=== PATIENT | female | born 1980 | race American Indian/Alaskan Native ===

== ENCOUNTER 2020-04-21 00:38 | Emergency (ER) | payer OTHER ==
[2020-04-21 01:33] VITALS: BP 115/65; PULSE 73; TEMP 98.8; BMI 26.9
--- NOTE | 2020-04-21 02:25 | PDOC ---
History of Present Illness - General Chief Complaint: Cold Symptoms Stated Complaint: FEVER Time Seen by Provider: 04/21/20 02:24 History Source: Patient Exam Limitations: No Limitations - History of Present Illness Initial Comments: 04/21/20 02:36 40 yo F with hx of Hepatitis B (2006) presents to the emergency department with fever. Patient states it has been ongoing since yesterday. Per the patient, she states that she had a 100.4 fever yesterday and took motrin. Today, she had a 100.6 F temperature and took motrin at approximately 10:00 pm. The patient denies the following: nausea, vomiting, lightheadedness, cough, SOB, chest pain, abdominal pain, dysuria, hematuria, diarrhea, dysuria, hematuria, increased urinary frequency, ears/nose/throat pain, rhinorrhea, and rash. Endorses having generalized body aches. Allergies: NKDA Past History - Medical History Allergies/Adverse Reactions: Allergies Allergy/AdvReac Type Severity Reaction Status Date / Time No Known Allergies Allergy Verified 04/21/20 01:34 Home Medications: Ambulatory Orders No Home Medications 0 dose .ROUTE UTDICT 09/04/13 Acetaminophen [Tylenol .Regular Strength -] 650 mg PO Q6H 06/16/14 Fexofenadine/Pseudoephedrine [Mireille-D 12 Hour Tablet] 1 each PO DAILY #10 tab.er.12h 06/16/14 COPD: No - Reproductive History Is Patient Now?: No - Psycho-Social/Smoking History Smoking History: Never smoked Have you smoked in the past 12 months: No - Substance Abuse Hx (Audit-C & DAST Scrn) How often the patient has a drink containing alcohol: Never Score: In Men: 4 or > Positive; In Women: 3 or > Positive: 0 Screen Result (Pos requires Nsg. Audit-10AR): Negative In the last yr the pt used illegal drug/Rx for NonMed reason: No Score: Yes response is considered Positive: 0 Screen Result (Positive result requires Nsg. DAST-10): Negative Review of Systems - Review of Systems Able to Perform ROS?: Yes Is the patient limited Divehi proficient: No Constitutional: Yes: Fever. No: Chills, Diaphoresis, Weakness HEENTM: No: Eye Pain, Ear Pain, Nose Pain, Throat Pain Respiratory: No: Cough, Shortness of Breath, Hemoptysis Cardiac (ROS): No: Chest Pain, Lightheadedness, Syncope ABD/GI: No: Constipated, Diarrhea, Nausea, Poor Appetite, Poor Fluid Intake, Rectal Bleeding, Vomiting, Abdominal cramping, Tarry Stools : No: Burning, Dysuria, Hematuria Musculoskeletal: No: Back Pain, Joint Pain, Neck Pain Integumentary: No: Bruising, Rash Neurological: No: Headache Psychiatric: No: Change in Appetite Endocrine: No: Unexplained Weight Loss Hematologic/Lymphatic: No: Anemia *Physical Exam - Vital Signs Last Vital Signs Temp Pulse Resp BP Pulse Ox 98.8 F 73 18 115/65 100 04/21/20 01:04/21/20 01:04/21/20 01:04/21/20 01:04/21/20 01:31 - Physical Exam General Appearance: Yes: Nourished, Appropriately Dressed. No: Apparent Distress, Intoxicated HEENT: positive: EOMI, BRITTANY, Normal ENT Inspection, Normal Voice, Symmetrical, TMs Normal, Pharynx Normal, Hearing Grossly Normal. negative: Pale Conjunctivae, Scleral Icterus (R), Scleral Icterus (L), Muffled/Hoarse voice, Pharyngeal Erythema, Tonsillar Exudate, Tonsillar Erythema, Nasal Congestion, Rhinorrhea, Sinus Tenderness, Excessive drooling Neck: positive: Trachea midline, Supple. negative: Tender, Lymphadenopathy (R), Lymphadenopathy (L), Tender lateral, Tender midline Respiratory/Chest: positive: Lungs Clear, Normal Breath Sounds. negative: Chest Tender, Respiratory Distress, Accessory Muscle Use, Rhonchi, Stridor, Wheezing Cardiovascular: positive: Regular Rhythm, Regular Rate, S1, S2. negative: Systolic Murmur Gastrointestinal/Abdominal: positive: Normal Bowel Sounds, Flat, Soft. negative: Tender, Distended, Guarding, Rebound Lymphatic: negative: Adenopathy Musculoskeletal: positive: Normal Inspection. negative: CVA Tenderness, Vertebral Tenderness Extremity: positive: Normal Capillary Refill, Normal Inspection, Normal Range of Motion. negative: Tender, Swelling, Calf Tenderness Integumentary: positive: Normal Color, Dry, Warm. negative: Swelling, Ecchymosis Neurologic: positive: Fully Oriented, Alert, Normal Mood/Affect, Normal Response Medical Decision Making - Medical Decision Making 40 yo F with hx of Hepatitis B (2006) presents to the emergency department with fever. Patient states it has been ongoing since yesterday. Per the patient, she states that she had a 100.4 fever yesterday and took motrin. Initial vitals: Initial Vital Signs Temp Pulse Resp BP Pulse Ox 98.8 F 73 18 115/65 100 04/21/20 01:31 04/21/20 01:31 04/21/20 01:31 04/21/20 01:31 04/21/20 01:31 Work up: patient presents to the emergency department with subjective fever. the patient had a normal temperature upon arrival and normal vital signs. patient was examined and no focal findings were appreciated. The patient state there is no sick contacts in her vicinity and denies recent travels and denies exposure to suspected or confirmed COVID. Patient was given strict return precautions and was stable for discharge. Discharge - Discharge Information Problems reviewed: Yes Clinical Impression/Diagnosis: Body aches Disposition: HOME - Admission No - Follow up/Referral Referrals: Chandrika Houston MD [Primary Care Provider] - - Patient Discharge Instructions Patient Printed Discharge Instructions: DI for Viral Upper Respiratory Infection -- Adult, [facility]-Coronavirus Instructions, [facility] COVID-19 Isolation Protocol Additional Instructions: You were seen in the emergency department for your fevers. It is possible that you have a viral infection, possibly COVID-19. Please quarantine yourself from others to protect others from infection. Please return to the emergency department if you have worsening symptoms or new concerning symptoms. Thank you. Please follow up with your primary medical doctor within 1 week after discharge for follow up care and management. - Post Discharge Activity Work/Back to School Note: Back to Work
--- NOTE | 2020-04-21 03:01 | PDOC ---
Attending Attestation - Resident Resident Name: Minesh Judge - ED Attending Attestation I have performed the following: I have examined & evaluated the patient, The case was reviewed & discussed with the resident, I agree w/resident's findings & plan, Exceptions are as noted - HPI HPI: 40 yo F history HBV presents with fever x1 day, measured at home. No other associated symptoms. No known sick contacts, however, there is a current COVID- 19 pandemic. - Physicial Exam PE: GENERAL: Awake, alert, and fully oriented, in no acute distress. Well-appearing. HEAD: No signs of trauma EYES: PERRLA, EOMI, sclera anicteric, conjunctiva clear ENT: Auricles normal inspection, hearing grossly normal, nares patent, oropharynx clear without exudates. Moist mucosa NECK: Normal ROM, supple, no lymphadenopathy, JVD, or masses LUNGS: Breath sounds equal, clear to auscultation bilaterally. No wheezes, and no crackles HEART: Regular rate and rhythm, normal S1 and S2, no murmurs, rubs or gallops ABDOMEN: Soft, nontender, normoactive bowel sounds. No guarding, no rebound. No masses EXTREMITIES: Normal range of motion, no edema. No clubbing or cyanosis. No cords, erythema, or tenderness NEUROLOGICAL: Cranial nerves II through XII grossly intact. Normal speech, normal gait. Motor and sensation intact SKIN: Warm, dry, normal turgor, no rashes or lesions noted. - Medical Decision Making Pt with fever, measured at home, took antipyretics prior to arrival. No other associated symptoms. Will swab for COVID-19. Stable for DC home. Discharge - Discharge Information Problems reviewed: Yes Clinical Impression/Diagnosis: Body aches Disposition: HOME - Follow up/Referral Referrals: Chandrika Houston MD [Primary Care Provider] - - Patient Discharge Instructions Patient Printed Discharge Instructions: DI for Viral Upper Respiratory Infection -- Adult, [facility]Coronavirus Instructions, [facility] COVID-19 Isolation Protocol Additional Instructions: You were seen in the emergency department for your fevers. It is possible that you have a viral infection, possibly COVID-19. Please quarantine yourself from others to protect others from infection. Please return to the emergency department if you have worsening symptoms or new concerning symptoms. Thank you. Please follow up with your primary medical doctor within 1 week after discharge for follow up care and management. - Post Discharge Activity Work/Back to School Note: Back to Work
== END 2020-04-21 03:05 | disposition home or self-care (01) ==
LOC: JER 00:38
DX: U07.1 COVID-19 (principal); R50.9 Fever, unspecified
CPT/HCPCS: 99283-25; U0003

== ENCOUNTER 2020-05-01 09:25 | Emergency (ER) | payer OTHER ==
--- NOTE | 2020-05-01 10:45 | PDOC ---
History of Present Illness - General Stated Complaint: COVID TEST Time Seen by Provider: 05/01/20 10:41 History Source: Patient Exam Limitations: Clinical Condition - History of Present Illness Initial Comments: 05/01/20 10:41 Patient and family members with past medical history of recent positive COVID test 10 days ago present request for repeat COVID test. Patient reports she spoke to Department of Health and she was advised she can have COVID test repeated at this time. Denies fever, shortness of breath, cough, chest pain. Patient wants to have a COVID test repeated to make sure she is cleared of COVID. Denies any other symptoms Is this a multiple visit Asthma Patient?: No Timing/Duration: reports: unsure Presenting Symptoms: No: runny nose, trouble breathing, painful swallowing, headache Past History - Past History Allergies/Adverse Reactions: Allergies No Known Allergies Allergy (Verified 04/21/20 01:34) Home Medications: Ambulatory Orders No Home Medications 0 dose .ROUTE UTDICT 09/04/13 Acetaminophen [Tylenol .Regular Strength -] 650 mg PO Q6H 06/16/14 Fexofenadine/Pseudoephedrine [Mireille-D 12 Hour Tablet] 1 each PO DAILY #10 tab.er.12h 06/16/14 - Social History Smoking Status: Never smoked Review of Systems - Review of Systems Able to Perform ROS?: Yes Is the patient limited Greek proficient: No Constitutional: No: Chills, Fever, Malaise HEENTM: No: Symptoms Reported, See HPI, Eye Pain, Blurred Vision, Tearing, Recent change in vision, Double Vision, Cataracts, Ear Pain, Ocular Prothesis, Ear Discharge, Nose Pain, Nose Congestion, Tinnitus, Nose Bleeding, Hearing Loss, Throat Pain, Throat Swelling, Mouth Pain, Dental Problems, Difficulty Swallowing, Mouth Swelling, Other Respiratory: No: Symptoms reported, See HPI, Cough, Orthopnea, Shortness of Breath, SOB with Exertion, SOB at Rest, Stridor, Wheezing, Productive cough, Hemoptysis, Other Cardiac (ROS): No: Symptoms Reported, See HPI, Chest Pain, Edema, Irregular Heart Rate, Lightheadedness, Palpitations, Syncope, Chest Tightness, Other ABD/GI: No: Symptoms Reported, Nausea, Vomiting Musculoskeletal: No: Symptoms Reported Integumentary: No: Symptoms Reported Neurological: No: Symptoms reported, Headache All Other Systems: Reviewed and Negative *Physical Exam - Physical Exam General Appearance: Yes: Nourished, Appropriately Dressed. No: Apparent Distress HEENT: positive: Normal ENT Inspection, Normal Voice Respiratory/Chest: negative: Respiratory Distress, Accessory Muscle Use Musculoskeletal: positive: Normal Inspection Extremity: positive: Normal Inspection, Normal Range of Motion Integumentary: positive: Normal Color Neurologic: positive: Fully Oriented, Alert, Normal Mood/Affect, Normal Response, Motor Strength 01/07 Medical Decision Making - Medical Decision Making 05/01/20 10:42 Patient and family members with past medical history of recent positive COVID test 10 days ago present request for repeat COVID test. Patient reports she spoke to Department of Health and she was advised she can have COVID test repeated at this time. Denies fever, shortness of breath, cough, chest pain. Patient wants to have a COVID test repeated to make sure she is cleared of COVID. Denies any other symptoms Patient afebrile at this time. Patient in no acute distress. Discussed with patient is too early to have COVID test repeated in 10 days of testing positive. Patient advised to wait a few more days to get retested. Patient agreed to have retested done in 5 days and will put the order in for patient to go to [facility] [employer] [facility]-through testing on Tuesday for retesting. Self quarantine instructions discussed with patient and patient stable for discharge Discharge - Discharge Information Problems reviewed: Yes Clinical Impression/Diagnosis: Telehealth encounter for confirmed COVID-19 Condition: Stable Disposition: HOME - Admission No - Follow up/Referral Referrals: Chandrika Houston MD [Primary Care Provider] - - Patient Discharge Instructions Patient Printed Discharge Instructions: [facility]Coronavirus Instructions, [facility] COVID-19 Isolation Protocol - Post Discharge Activity
== END 2020-05-01 10:46 | disposition home or self-care (01) ==
LOC: JVIRT 09:25
DX: Z20.828 Contact with and (suspected) exposure to other viral communicable diseases (principal)
CPT/HCPCS: Q3014-GT; U0003

== ENCOUNTER 2020-05-10 09:13 | Emergency (ER) | payer OTHER ==
--- NOTE | 2020-05-10 09:41 | TELE ---
HPI Do you have fever,cough or shortness of breath?: No - General Reason For Visit: COVID TESTING History Source: Patient Exam Limitations: No Limitations - History of Present Illness 05/10/20 09:40 Patient is a 40-year-old female who participated in a virtual urgent care visit requesting COVID testing. She states on April 20 she tested positive for COVID. She had repeat testing on May 01 and again was positive. She states April 20 and she had body aches with fevers of T-max of 100.8F. She states she has been symptom-free since April 21. She denies any shortness of breath, chest pain, body aches, fevers, chills, loss of taste, cough or any other symptoms. The patient has no past medical history or allergies to medications. She is required to test negative prior to returning to work. 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 The patient denies any recent travel outside of the within the last 30 days or any travel outside of [place] within the last 14. She denies any known COVID contacts. Of note: This telehealth visit was done via audio only as the patient was having technical difficulties joining the video portion of the telehealth visit. Past History - Medical History Allergies/Adverse Reactions: Allergies Allergy/AdvReac Type Severity Reaction Status Date / Time No Known Allergies Allergy Verified 04/21/20 01:34 Home Medications: Ambulatory Orders No Home Medications 0 dose .ROUTE UTDICT 09/04/13 Acetaminophen [Tylenol .Regular Strength -] 650 mg PO Q6H 06/16/14 Fexofenadine/Pseudoephedrine [Mireille-D 12 Hour Tablet] 1 each PO DAILY #10 tab.er.12h 06/16/14 COPD: No - Psycho-Social/Smoking History Smoking History: Never smoked Have you smoked in the past 12 months: No Review of Systems - Review of Systems Comments:: 05/10/20 09:42 - Review of Systems Able to Perform ROS?: Yes Constitutional: No: Fever, Chills, Loss of Appetite, Night Sweats, Weakness; positive: Repeat COVID testing HEENTM: No: Eye Pain, Vision changes, Ear Pain, Throat Pain, Throat Swelling, Mouth Pain, Difficulty Swallowing Respiratory: No: Cough, Shortness of Breath, Wheezing, Sputum Production Cardiac (ROS): No: Chest Pain, Chest Tightness, Palpitations, Irregular Heart Beat, Edema ABD/GI: No: Nausea, Vomiting, Abdominal Pain, Diarrhea : No Dysuria, No Hematuria, No Frequency, No Urgency Musculoskeletal: No: Muscle Pain, Back Pain, Joint Pain, Muscle Weakness, Neck Pain Integumentary: No: Lesions, Rash Neurological: No: Headache, Numbness, Tingling, Weakness, Speech Difficulties *Physical Exam - Physical Exam 05/10/20 09:43 Exam limited to audio evaluation only: - Physical Exam HEENT: Normal Voice, Hearing Grossly Normal Respiratory: Speaking in full and complete sentences, no audible shortness of breath and no audible adventitious lung sounds Neurologic: Fully Oriented, Alert, Normal Mood/Affect, Normal Response - Medical Decision Making 05/10/20 09:44 Please note: This telehealth visit was done via audio only as the patient was having technical difficulties joining the video portion of the visit. Assessment: Patient is a 40-year-old female who participated in a virtual urgent care visit for repeat COVID testing after testing positive twice on April 20 and May 01. She is completely asymptomatic at this time. She is required to have a negative test prior to returning back to work. Plan: -COVID swab ordered -COVID counseling given, isolation precautions reviewed -Patient instructed to proceed to our [facility] for testing -She understands and agrees with this treatment and plan Discharge Diagnosis at time of Disposition: Lab test positive for detection of COVID-19 virus, Counseled about COVID-19 virus infection - Referrals Follow-up Referral(s): Chandrika Houston MD [Primary Care Provider] - - Patient Instructions Discharge Instructions: [facility]Coronavirus Instructions, [facility] COVID-19 Isolation Protocol Additional Discharge Instructions: You were seen via a telehealth visit and tested for COVID today. You should follow isolation precautions as per [facility] guidelines. Thank you for participating in our telehealth medicine program. If you have any worsening symptoms such as high fever, shaking chills, profuse vomiting or any other worsening symptoms you should go to your local emergency department immediately or follow up with your primary care doctor immediately. You have been previously tested positive for COVID. Continue your isolation precautions as instructed. If you become symptomatic: Take Tylenol 650 mg every 6 hours as needed for fever or pain. You may take Robitussin or other [id number] cough syrup. Follow the dosing instructions on the bottle. Warm tea, honey, and salt water gargles may help your symptoms. Please take precautions and self quarantine for 2 weeks and follow-up with your primary care doctor and the Department of Health. Return to the nearest emergency department for shortness of breath, difficulty breathing, chest pain, or if you have any changes in your symptoms. - Discharge Disposition: HOME Condition at time of Disposition: Stable
== END 2020-05-10 09:47 | disposition home or self-care (01) ==
LOC: JVIRT 09:13
DX: Z20.828 Contact with and (suspected) exposure to other viral communicable diseases (principal)
CPT/HCPCS: 99441-95

== ENCOUNTER 2021-01-14 16:21 | Emergency (ER) | payer OTHER ==
[2021-01-14 16:31] VITALS: BMI 28.0
[2021-01-14] MEDS ORDERED: LACTATED RINGERS SOLUTION 1000 ML INFUS.BAG IV ONE ×2 (19:15→22:43)
[2021-01-14] MEDS ORDERED: ONDANSETRON 4 MG/2 ML VIAL IVPUSH ONE (19:15)
[2021-01-14] MEDS ORDERED: FAMOTIDINE 20 MG/50 ML IVPB 20 MG/50 ML MG IVPB ONE ×2 (19:15→19:57)
[2021-01-14] MEDS ORDERED: ONDANSETRON 4 MG/2 ML VIAL ONE (19:18)
[2021-01-14 20:09] LABS: BASO % 0.5 % (0-2.0); EOS % 0.4 % (0-4.5); HEMATOCRIT 40.2 % (32.4-45.2); HEMOGLOBIN 13.6 GM/dL (10.7-15.3); MCH 29.4 pg (25.7-33.7); MCHC 33.9 g/dl (32.0-36.0); MEAN CELL VOLUME 86.9 fl (80-96); MONO % 5.9 % (3.8-10.2); NEUT % 67.2 % (42.8-82.8); PLATELET COUNT 283 K/MM3 (134-434); RBC 4.62 M/mm3 (3.60-5.2); RDW 13.5 % (11.6-15.6); WHITE BLOOD COUNT 8.4 K/mm3 (4.0-10.0)
[2021-01-14 20:24] LABS: INR 1.08 (0.83-1.09); PROTHROMBIN TIME (PATIENT) 13.2 SEC (9.7-13.0)
[2021-01-14 20:27] LABS: ACTIVATED PTT 30.8 SECONDS (25.2-36.5)
[2021-01-14 20:32] LABS: CHLORIDE 102 mmol/L (98-107); SODIUM 137 mmol/L (136-145)
[2021-01-14 20:34] LABS: CALCIUM 8.7 mg/dL (8.5-10.1)
[2021-01-14 20:35] LABS: ALBUMIN 3.8 g/dl (3.4-5.0); ANION GAP 6 MMOL/L (8-16); BLOOD UREA NITROGEN 7.3 mg/dL (7-18); CO2 29 mmol/L (21-32); GLUCOSE,RANDOM 81 mg/dL (74-106); MAGNESIUM 2.4 mg/dL (1.8-2.4)
[2021-01-14 20:38] LABS: CREATININE 0.6 mg/dL (0.55-1.3); SGOT/AST 19 U/L (15-37); SGPT/ALT 33 U/L (13-61)
[2021-01-14 20:39] LABS: BILIRUBIN,TOTAL 0.8 mg/dL (0.2-1)
[2021-01-14 20:41] LABS: ALK PHOS 65 U/L (45-117)
[2021-01-14 21:55] LABS: VENOUS BASE EXCESS -0.1 mmol/L (-2-2); VENOUS O2 SATURATION 86.4 % (70-80); VENOUS PCO2 37.9 mmHg (38-52); VENOUS PH 7.422 (7.310-7.410)
[2021-01-14 22:08] LABS: EPI CELLS 4 /uL (0-25.1); HYALINE CASTS 0 /uL (0-3.1); PH,URINE 7.5 (5.0-8.0); URINE APPEARANCE CLEAR; URINE BACTERIA 401 /uL (0-1359); URINE BILIRUBIN NEGATIVE (NEGATIVE); URINE COLOR YELLOW; URINE GLUCOSE (UA) NEGATIVE (NEGATIVE); URINE KETONE 1+ (NEGATIVE); URINE LEUK ESTERASE NEGATIVE (NEGATIVE); URINE NITRITE NEGATIVE (NEGATIVE); URINE PROTEIN NEGATIVE (NEGATIVE); URINE RBC 22 /uL (0-23.9); URINE WBC 3 /uL (0-25.8)
[2021-01-14] MEDS ORDERED: METOCLOPRAMIDE HCL INJECTION 10 MG/2 ML VIAL IVPUSH ONE (22:43)
[2021-01-14] MEDS ORDERED: ACETAMINOPHEN 1000 MG/100 ML VIAL (NON FORMULARY) IVPB ONE (22:43)
[2021-01-14] MEDS ORDERED: METOCLOPRAMIDE HCL INJECTION 10 MG/2 ML VIAL ONE (22:52)
[2021-01-14] MEDS ORDERED: ACETAMINOPHEN INJECTION 100 ML IVPB ONE (22:52)
[2021-01-14 23:31] VITALS: BP 121/81; PULSE 94; TEMP 98.8
== END 2021-01-15 00:32 | disposition home or self-care (01) ==
LOC: JER 16:21
PROC: 3E0333Z Introduction of Anti-inflammatory into Peripheral Vein, Percutaneous Approach (ICD-10-PCS; principal; 2021-01-14)
PROC: 3E033GC Introduction of Other Therapeutic Substance into Peripheral Vein, Percutaneous Approach (ICD-10-PCS; 2021-01-14)
PROC: 3E033GC Introduction of Other Therapeutic Substance into Peripheral Vein, Percutaneous Approach (ICD-10-PCS; 2021-01-14)
PROC: 3E033GC Introduction of Other Therapeutic Substance into Peripheral Vein, Percutaneous Approach (ICD-10-PCS; 2021-01-14)
DX: R11.2 Nausea with vomiting, unspecified (principal)
CPT/HCPCS: 36415; 71046-TC-FY; 76705-TC; 80053; 81003; 82550; 82803; 83735; 84484; 84703; 85025; 85610; 85730; 93005; 93010; 99285-25; J0131

== ENCOUNTER 2023-03-18 21:50 | Emergency (ER) | payer OTHER ==
[2023-03-18 22:00] VITALS: BP 125/86; PULSE 80; RESP 18; TEMP 98.4; BMI 26.2
[2023-03-18] MEDS ORDERED: SODIUM CHLORIDE 0.9% 500 ML INFUS.BAG IV ONE (23:19)
[2023-03-18] MEDS ORDERED: FAMOTIDINE 20 MG/50 ML IVPB 20 MG/50 ML MG IVPB ONE (23:19)
[2023-03-18] MEDS ORDERED: ACETAMINOPHEN 1000 MG/100 ML BAG IVPB ONE (23:19)
[2023-03-18] MEDS ORDERED: MAG HYDROX/AL HYDROX/SIMETH 30 ML UNIT-DOSE CUP PO ONE (23:19)
[2023-03-19 00:13] LABS: BASO % 0.5 % (0-2.0); EOS % 1.5 % (0-4.5); HEMATOCRIT 38.1 % (32.4-45.2); HEMOGLOBIN 12.4 GM/dL (10.7-15.3); LYMPH % 21.3 % (8-40); MCH 27.7 pg (25.7-33.7); MCHC 32.5 g/dl (32.0-36.0); MEAN CELL VOLUME 85.2 fl (80-96); MEAN PLT VOLUME 8.8 fl (7.5-11.1); MONO % 5.7 % (3.8-10.2); PLATELET COUNT 262 10^3/uL (134-434); RBC 4.48 M/mm3 (3.60-5.2); RDW 14.2 % (11.6-15.6); WHITE BLOOD COUNT 8.9 K/mm3 (4.0-10.0)
[2023-03-19] MEDS ORDERED: FAMOTIDINE 20 MG/50 ML IVPB 20 MG/50 ML MG IVPB ONE (00:21)
[2023-03-19] MEDS ORDERED: ACETAMINOPHEN INJECTION 100 ML IVPB ONE (00:21)
[2023-03-19] MEDS ORDERED: MAG HYDROX/AL HYDROX/SIMETH 30 ML UNIT-DOSE CUP ONE (00:21)
[2023-03-19 00:24] LABS: INR 1.07 (0.83-1.09); PROTHROMBIN TIME (PATIENT) 12.4 SEC (9.7-13.0)
[2023-03-19 00:41] LABS: POTASSIUM 4.2 mmol/L (3.5-5.1)
[2023-03-19 00:43] LABS: ALBUMIN 3.4 g/dl (3.4-5.0); CALCIUM 9.1 mg/dL (8.5-10.1)
[2023-03-19 00:44] LABS: BLOOD UREA NITROGEN 5.6 mg/dL (7-18)
[2023-03-19 00:47] LABS: CREATININE 0.6 mg/dL (0.55-1.3)
[2023-03-19 00:48] LABS: BILIRUBIN,TOTAL 0.4 mg/dL (0.2-1); TOT PROT 7.3 g/dl (6.4-8.2)
== END 2023-03-19 01:46 | disposition home or self-care (01) ==
LOC: JER 21:50
PROC: 3E033GC Introduction of Other Therapeutic Substance into Peripheral Vein, Percutaneous Approach (ICD-10-PCS; principal; 2023-03-18)
PROC: 3E033NZ Introduction of Analgesics, Hypnotics, Sedatives into Peripheral Vein, Percutaneous Approach (ICD-10-PCS; 2023-03-18)
DX: R07.89 Other chest pain (principal); R53.1 Weakness
CPT/HCPCS: 36415; 71046-TC-FY; 80053; 84484; 85025; 85610; 93005; 93010; 99285-25

== ENCOUNTER 2023-03-20 13:52 | Emergency (ER) | payer OTHER ==
[2023-03-20 14:02] VITALS: BMI 26.2
[2023-03-20] MEDS ORDERED: FAMOTIDINE 20 MG/50 ML IVPB 20 MG/50 ML MG IVPB ONE ×2 (15:18→15:25)
[2023-03-20] MEDS ORDERED: DEXAMETHASONE SOD PHOSPHATE 10 MG/1 ML VIAL IVPUSH ONE (15:18)
[2023-03-20] MEDS ORDERED: SODIUM CHLORIDE 0.9% 500 ML INFUS.BAG IV ONE (15:22)
[2023-03-20] MEDS ORDERED: DEXAMETHASONE SOD PHOSPHATE 10 MG/1 ML VIAL ONE (15:25)
[2023-03-20 17:30] VITALS: BP 110/66; PULSE 82; RESP 19; TEMP 98.6
== END 2023-03-20 17:41 | disposition home or self-care (01) ==
LOC: JERFT 13:52
PROC: 3E033GC Introduction of Other Therapeutic Substance into Peripheral Vein, Percutaneous Approach (ICD-10-PCS; principal; 2023-03-20)
PROC: 3E033GC Introduction of Other Therapeutic Substance into Peripheral Vein, Percutaneous Approach (ICD-10-PCS; 2023-03-20)
PROC: 3E033GC Introduction of Other Therapeutic Substance into Peripheral Vein, Percutaneous Approach (ICD-10-PCS; 2023-03-20)
DX: R21 Rash and other nonspecific skin eruption (principal); L29.9 Pruritus, unspecified; T78.40XA Allergy, unspecified, initial encounter
CPT/HCPCS: 99284-25; J1100

== ENCOUNTER 2023-05-17 23:07 | Emergency (ER) | payer OTHER ==
[2023-05-17 23:19] VITALS: BP 120/69; PULSE 76; RESP 15; TEMP 98.4; BMI 26.2
[2023-05-18] MEDS ORDERED: FAMOTIDINE 20 MG/50 ML IVPB 20 MG/50 ML MG IVPB ONE ×3 (00:36→00:51)
[2023-05-18] MEDS ORDERED: SUCRALFATE 1 GM TABLET (FP) PO ONE (00:36)
[2023-05-18] MEDS ORDERED: ACETAMINOPHEN 1000 MG/100 ML BAG IVPB ONE (00:36)
[2023-05-18] MEDS ORDERED: MAG HYDROX/AL HYDROX/SIMETH -MYLANTA- ORAL SUSPENSION PO ONE (00:36)
[2023-05-18] MEDS ORDERED: MAG HYDROX/AL HYDROX/SIMETH 30 ML UNIT-DOSE CUP ONE (00:50)
[2023-05-18] MEDS ORDERED: ACETAMINOPHEN INJECTION 100 ML IVPB ONE (00:50)
[2023-05-18] MEDS ORDERED: SUCRALFATE 1 GM TABLET (FP) ONE (00:59)
[2023-05-18 01:27] LABS: URINE APPEARANCE CLEAR; URINE BILIRUBIN NEGATIVE (NEGATIVE); URINE COLOR YELLOW; URINE GLUCOSE (UA) NEGATIVE (NEGATIVE); URINE KETONE NEGATIVE (NEGATIVE); URINE LEUK ESTERASE NEGATIVE (NEGATIVE); URINE NITRITE NEGATIVE (NEGATIVE); URINE PROTEIN NEGATIVE (NEGATIVE); URINE UROBILINOGEN 0.2 mg/dL (0.2-1.0)
[2023-05-18 01:37] LABS: BASO % 0.7 % (0-2.0); EOS % 1.4 % (0-4.5); HEMATOCRIT 38.1 % (32.4-45.2); HEMOGLOBIN 12.4 GM/dL (10.7-15.3); LYMPH % 26.8 % (8-40); MCHC 32.6 g/dl (32.0-36.0); MEAN CELL VOLUME 85.6 fl (80-96); MEAN PLT VOLUME 9.9 fl (7.5-11.1); MONO % 5.7 % (3.8-10.2); NEUT % 65.4 % (42.8-82.8); PLATELET COUNT 273 10^3/uL (134-434); RBC 4.45 M/mm3 (3.60-5.2); RDW 14.7 % (11.6-15.6); WHITE BLOOD COUNT 8.3 K/mm3 (4.0-10.0)
[2023-05-18 01:46] LABS: POTASSIUM 4.4 mmol/L (3.5-5.1)
[2023-05-18 01:48] LABS: ALBUMIN 3.7 g/dl (3.4-5.0); BLOOD UREA NITROGEN 9.2 mg/dL (7-18); CALCIUM 8.6 mg/dL (8.5-10.1)
[2023-05-18 01:51] LABS: CREATININE 0.6 mg/dL (0.55-1.3)
[2023-05-18 01:53] LABS: BILIRUBIN,TOTAL 0.6 mg/dL (0.2-1); TOT PROT 7.3 g/dl (6.4-8.2)
[2023-05-18 02:09] LABS: PROTHROMBIN TIME (PATIENT) 11.6 SEC (9.7-13.0)
[2023-05-18 02:12] LABS: ACTIVATED PTT 29.7 SECONDS (25.2-36.5)
== END 2023-05-18 02:47 | disposition home or self-care (01) ==
LOC: JER 23:07
PROC: 3E033GC Introduction of Other Therapeutic Substance into Peripheral Vein, Percutaneous Approach (ICD-10-PCS; principal; 2023-05-18)
PROC: 3E033NZ Introduction of Analgesics, Hypnotics, Sedatives into Peripheral Vein, Percutaneous Approach (ICD-10-PCS; 2023-05-18)
DX: R10.13 Epigastric pain (principal); B96.81 Helicobacter pylori [H. pylori] as the cause of diseases classified elsewhere
CPT/HCPCS: 36415; 80053; 81003; 83690; 84484; 84703; 85025; 85610; 85730; 93005; 93010; 99284-25

== ENCOUNTER 2023-09-05 20:22 | Emergency (ER) | payer OTHER ==
[2023-09-05 20:31] VITALS: RESP 18; TEMP 97.9; BMI 26.2
[2023-09-05] MEDS ORDERED: FAMOTIDINE 20 MG/50 ML IVPB 20 MG/50 ML MG IVPB ONE ×2 (21:25→21:44)
[2023-09-05] MEDS ORDERED: MAG HYDROX/AL HYDROX/SIMETH 30 ML UNIT-DOSE CUP PO ONE (21:26)
[2023-09-05] MEDS ORDERED: ACETAMINOPHEN 1000 MG/100 ML BAG IVPB ONE (21:26)
[2023-09-05] MEDS ORDERED: MAG HYDROX/AL HYDROX/SIMETH 30 ML UNIT-DOSE CUP ONE (21:44)
[2023-09-05] MEDS ORDERED: ACETAMINOPHEN INJECTION 100 ML IVPB ONE (21:44)
[2023-09-05 22:08] LABS: BASO % 1.1 % (0-2.0); EOS % 1.7 % (0-4.5); HEMATOCRIT 37.2 % (32.4-45.2); HEMOGLOBIN 12.4 GM/dL (10.7-15.3); LYMPH % 26.7 % (8-40); MCH 28.1 pg (25.7-33.7); MCHC 33.2 g/dl (32.0-36.0); MEAN CELL VOLUME 84.4 fl (80-96); MEAN PLT VOLUME 8.5 fl (7.5-11.1); MONO % 6.4 % (3.8-10.2); NEUT % 64.1 % (42.8-82.8); PLATELET COUNT 287 10^3/uL (134-434); RBC 4.41 M/mm3 (3.60-5.2); RDW 14.6 % (11.6-15.6); WHITE BLOOD COUNT 8.6 K/mm3 (4.0-10.0)
[2023-09-05 23:18] LABS: ALK PHOS 57 U/L (45-117)
[2023-09-05 23:21] LABS: ALBUMIN 3.2 g/dl (3.4-5.0); ANION GAP 8 mmol/L (4-13); BILIRUBIN,TOTAL 0.3 mg/dL (0.2-1); BLOOD UREA NITROGEN 10.3 mg/dL (7-18); CALCIUM 8.6 mg/dL (8.5-10.1); CHLORIDE 109 mmol/L (98-107); CO2 24 mmol/L (21-32); CREATININE 0.6 mg/dL (0.55-1.3); GLUCOSE,RANDOM 92 mg/dL (74-106); LIPASE 117 U/L (73-393); SGOT/AST 13 U/L (15-37); SGPT/ALT 20 U/L (13-61); SODIUM 141 mmol/L (136-145)
[2023-09-06 01:32] VITALS: BP 138/82; PULSE 74
== END 2023-09-06 01:31 | disposition home or self-care (01) ==
LOC: JER 20:22
PROC: 3E033GC Introduction of Other Therapeutic Substance into Peripheral Vein, Percutaneous Approach (ICD-10-PCS; principal; 2023-09-05)
PROC: 3E033NZ Introduction of Analgesics, Hypnotics, Sedatives into Peripheral Vein, Percutaneous Approach (ICD-10-PCS; 2023-09-05)
DX: R10.13 Epigastric pain (principal); Z20.822 Contact with and (suspected) exposure to COVID-19
CPT/HCPCS: 0241U-QW; 71046-TC-FY; 76705-TC; 80053; 83690; 84484; 84702; 85025; 93005; 93010; 99285-25

== ENCOUNTER 2025-06-07 18:06 | Emergency (ER) | payer OTHER ==
[2025-06-07 18:15] VITALS: TEMP 98.2; BMI 21.4
[2025-06-07 19:39] LABS: ABSOLUTE IMMATURE GRANULOCYTES 0.02 x10^3/uL (0.0-0.031); BASOPHILS # 0.04 x10^3/uL (0.01-0.08); EOSINOPHIL % 2.6 % (0.7-5.8); EOSINOPHILS # 0.23 x10^3/uL (0.04-0.36); MCHC 32.1 g/dl (32.2-35.5); MEAN CELL VOLUME 84.2 fl (79.4-94.8); MEAN PLT VOLUME 10.5 fl (9.4-12.3); MONOCYTE # 0.72 x10^3/uL (0.24-0.86); MONOCYTE % 8.0 % (4.7-12.5); RDW 14.4 % (12.2-17.1)
[2025-06-07 19:44] LABS: HCG,QUALITATIVE URINE Negative
[2025-06-07 19:51] LABS: URINE APPEARANCE CLEAR; URINE COLOR YELLOW
[2025-06-07 19:52] LABS: URINE BILIRUBIN NEGATIVE (NEGATIVE); URINE GLUCOSE (UA) NEGATIVE (NEGATIVE); URINE KETONE NEGATIVE (NEGATIVE); URINE LEUK ESTERASE TRACE (NEGATIVE); URINE NITRITE NEGATIVE (NEGATIVE); URINE PROTEIN NEGATIVE (NEGATIVE); URINE UROBILINOGEN 1.0 mg/dL (0.2-1.0)
[2025-06-07] MEDS ORDERED: FAMOTIDINE 20 MG/50 ML IVPB 20 MG/50 ML MG IVPB ONE (20:00)
[2025-06-07] MEDS ORDERED: ACETAMINOPHEN INJECTION 100 ML ONE (20:00)
[2025-06-07] MEDS ORDERED: ONDANSETRON 4 MG/2 ML VIAL ONE (20:00)
[2025-06-07 20:04] LABS: GLUCOSE,RANDOM 116.0 mg/dL (74-106); TOT PROT 8.1 g/dl (6.4-8.2)
[2025-06-07 20:05] LABS: CO2 25.0 mmol/L (21-32)
[2025-06-07 20:07] LABS: ALK PHOS 64.0 U/L (40-150)
[2025-06-07] MEDS: SODIUM CHLORIDE 0.9% 500 ML INFUS.BAG IV ONE (20:09)
[2025-06-07] MEDS: FAMOTIDINE 20 MG/50 ML IVPB 20 MG/50 ML MG IVPB ONE (20:09)
[2025-06-07] MEDS: ONDANSETRON 4 MG/2 ML VIAL IVPB ONE (20:09)
[2025-06-07] MEDS: ACETAMINOPHEN 1000 MG/100 ML BAG IVPB ONE (20:09)
[2025-06-07 20:10] LABS: CREATININE 0.54 mg/dL (0.55-1.3); SGOT/AST 19.0 U/L (5-34); SGPT/ALT 15.0 U/L (0-55)
[2025-06-07 20:30] LABS: HCV DIAGNOSTIC IN-HOUSE W/RFLX NON-REACTIVE (NONREACTIVE)
[2025-06-07 20:31] LABS: HIV INTERPRETATION NEGATIVE (NEGATIVE)
[2025-06-07 21:34] VITALS: BP 131/74; PULSE 88; RESP 18
== END 2025-06-07 21:34 | disposition home or self-care (01) ==
LOC: JER 18:06
PROC: 3E033GC Introduction of Other Therapeutic Substance into Peripheral Vein, Percutaneous Approach (ICD-10-PCS; principal; 2025-06-07)
PROC: 3E033NZ Introduction of Analgesics, Hypnotics, Sedatives into Peripheral Vein, Percutaneous Approach (ICD-10-PCS; 2025-06-07)
PROC: 3E033GC Introduction of Other Therapeutic Substance into Peripheral Vein, Percutaneous Approach (ICD-10-PCS; 2025-06-07)
DX: R10.13 Epigastric pain (principal); R11.2 Nausea with vomiting, unspecified; R50.9 Fever, unspecified; R05.9 Cough, unspecified
CPT/HCPCS: 36415; 71046-TC-FY; 80053; 81003; 83690; 84484; 84703; 85025; 86803; 87086; 87389; 87637-QW; 93005; 93010; 99285-25